=== PATIENT | female | born 1980 | race Caucasian/White ===

== ENCOUNTER 2017-08-03 06:50 | Day surgery (SDC) | payer BC, MEDICAID ==
[~2017-08-03 06:50] MED LIST: Bupivacaine 0.25% 10 ML SDV INJECT ONE; Lactated Ringers 1,000 ML IV SCH; ceFAZolin 2 GM in Premix Bag 1 BAG IV ONE
--- NOTE | 2017-08-03 07:17 | PCM.PREANE ---
Preanesthetic Assessment - Anesthesia/Transfusion/Family Hx Anesthesia History: Prior Anesthesia Without Reaction Family History of Anesthesia Reaction: No Transfusion History: No Prior Transfusion(s) Intubation History: Unknown - Review of Systems General: No Symptoms Pulmonary: No Symptoms Cardiovascular: No Symptoms Gastrointestinal: No Symptoms Neurological: No Symptoms Other: Reports: None - Physical Assessment O2 Sat by Pulse Oximetry: 98 Respiratory Rate: 16 Vital Signs: Last Vital Signs Temp 37.2 C 08/03/17 07:13 Pulse 74 08/03/17 07:13 Resp 16 08/03/17 07:13 BP 121/75 08/03/17 07:13 Pulse Ox 98 08/03/17 07:13 Height: 1.63 m Weight: 67.585 kg ASA Class: 1 Mental Status: Alert & Oriented x3 Airway Class: Mallampati = 2 Dentition: Reports: Normal Dentition Thyro-Mental Finger Breadths: 3 Mouth Opening Finger Breadths: 2 ROM/Head Extension: Full Lungs: Clear to Auscultation, Normal Respiratory Effort Cardiovascular: Regular Rate, Regular Rhythm - Allergies Allergies/Adverse Reactions: Allergies Allergy/AdvReac Type Severity Reaction Status Date / Time No Known Allergies Allergy Verified 05/28/14 10:40 - Blood Blood Available: No - Anesthesia Plan Pre-Op Medication Ordered: None - Acknowledgements Anesthesia Type Planned: General Anesthesia Pt an Appropriate Candidate for the Planned Anesthesia: Yes Alternatives and Risks of Anesthesia Discussed w Pt/Guardian: Yes Pt/Guardian Understands and Agrees with Anesthesia Plan: Yes PreAnesthesia Questionnaire HEENT History: Reports: Other (See Below) Other HEENT History: wears glasses Genitourinary History: Reports: None SHIRT CLEANER History: Reports: , Spontaneous - Past Surgical History Head Surgeries/Procedures: Reports: None HEENT Surgical History: Reports: Oral Surgery Other HEENT Surgeries/Procedures: wisdom teeth extraction Female Surgical History: Reports: D&C, Other (See Below) Other Female Surgeries/Procedures: exc of tissue from rt axilla - SUBSTANCE USE Smoking Status *Q: Former Smoker Tobacco Use Within Last Twelve Months: No Recreational Drug Use History: No - HOME MEDS Home Medications: Home Meds . [No Known Home Meds] 07/29/17 [History] - CURRENT (IN HOUSE) MEDS Current Meds: Current Medications Lactated Ringer's (Ringers, Lactated) 1,000 mls @ 125 mls/hr IV ASDIRECTED CARLOS Last Admin: 08/03/17 07:14 Dose: 125 mls/hr Discontinued Medications Bupivacaine HCl (Sensorcaine-Mpf 0.25%) 10 ml INJECT ONETIME ONE Stop: 08/02/17 16:50 Cefazolin Sodium/Dextrose 2 gm (/ Premix) 50 mls @ 100 mls/hr IV ONETIME ONE Stop: 08/02/17 17:18
[2017-08-03] MEDS ORDERED: Dexamethasone 4 MG/ML 5 ML MDV ONE (07:25)
[2017-08-03] MEDS ORDERED: Midazolam 1 MG/ML 2 ML SDV ONE (07:25)
[2017-08-03] MEDS ORDERED: fentaNYL 100 MCG/2 ML SDV ONE (07:25)
[2017-08-03] MEDS ORDERED: Propofol 200 MG/20 ML SDV ONE (07:25)
[2017-08-03] MEDS ORDERED: Ondansetron 4 MG/2 ML SDV ONE (07:25)
[2017-08-03] MEDS ORDERED: Lidocaine 2% 5 ML SDV ONE (07:25)
[2017-08-03] MEDS ORDERED: Bupivacaine 0.25% 10 ML SDV ONE (07:28)
[2017-08-03] MEDS ORDERED: Ketorolac 30 MG/ML SDV ONE (08:00)
[2017-08-03] MEDS ORDERED: fentaNYL 100 MCG/2 ML SDV IVPUSH PRN (08:34)
--- NOTE | 2017-08-03 09:05 | PCM.POSTAN ---
POST ANESTHESIA ASSESSMENT - MENTAL STATUS Mental Status: Alert, Oriented - RESPIRATORY Respiratory Status: Respiratory Rate WNL, Airway Patent, O2 Saturation Stable - CARDIOVASCULAR CV Status: Pulse Rate WNL, Blood Pressure Stable - GASTROINTESTINAL GI Status: No Symptoms - PAIN Pain Score: 0 - POST OP HYDRATION Hydration Status: Adequate & Stable
[2017-08-03 09:46] VITALS: BP 105/71
--- NOTE | 2017-08-03 17:42 | PCM.OPNOTE ---
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 Audit Clerk: Bekah Acevedo Condition: Good Free Text/Narrative:: Intake & Output 08/03/17 08/03/17 08/03/17 07:59 15:59 23:59 Intake Total 950 Balance 950
--- NOTE | 2017-08-04 13:12 | OR ---
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 PROCEDURE: Release of volar plate contracture and repair of extensor tendon dorsally at the PIP joint for boutonniere deformity of the right ring finger. TIRE BAGGER: NIEVES Hyde ANESTHESIA: Local MAC. INDICATIONS: Ms. Woodard is a 36-year-old female with a boutonniere deformity over the right ring finger. She has tried physical therapy and other conservative measures along with splinting and unfortunately continues to have progressive worsening. It is now static contracture of the volar plate wherein she is unable to extend the PIP joint. The dorsal extensor mechanism has stretched and the lateral bands migrating laterally. Risks and benefits of repair were discussed with her and she was in agreement to proceed. Risks were including, but not limited to, bleeding, infection, damage to underlying structures, possible need for future interventions and possible scarring. PROCEDURE IN DETAIL: After informed consent was obtained and placed on the chart, the patient was brought to the operating theater in supine position. After adequate local MAC anesthetic was obtained, the area was prepped and draped and a time-out was completed to confirm side and site. Once adequately prepped and draped, and the arm was exsanguinated and tourniquet was inflated to 200 mmHg, attention was then paid to dissection over the volar plate. A small Carley-type incision was made and dissection was carried down through the subcutaneous tissues taking care to protect the neurovascular bundles. The flexor tendon was reached and noted to be significantly scarred. This was freed and the volar plate was exposed. In a stepwise fashion, the checkrein ligament and then volar plate itself was released in order to allow full extension of the PIP joint. There was significant contracture of all involved structures that had to be released. Once adequately released, it was placed through range of motion and placed in a flat position. Once the volar plate released, attention was then paid to the extensor tendon through a small dorsal incision. Unfortunately, the extensor tendon had stretched and allowed lateral migration of the lateral bands. Once these were located and brought centrally, the central extensor mechanism was plicated and stitched together using a 4-0 FiberWire suture. Once this was adequately secured, attention was then paid to closure of the skin incisions after copious irrigation. The skin incisions were irrigated and closed using a 5-0 nylon stitch in a running horizontal mattress fashion. Once this was completed, the wound was dressed with Xeroform and placed in a short-arm splint in safe position. The patient tolerated this well. All counts and needles were correct at the end of the case. FOLLOWUP INSTRUCTIONS: The patient will see us in 1 week or sooner if any problems, questions, or concerns. PRIMARY SURGEON: SECONDARY SURGEON: REASON TIRE BAGGER WAS NECESSARY: ROLE OF TIRE BAGGER: ROSA BRICENO /[id number]
== END 2017-08-03 10:10 | disposition home or self-care (01) ==
LOC: MW.SDS 06:50
PROVIDERS: ATTEND Plastic Surgery
DX: M20.021 Boutonniere deformity of right finger(s) (principal); S69.92XA Unspecified injury of left wrist, hand and finger(s), initial encounter; Z87.891 Personal history of nicotine dependence; Z98.890 Other specified postprocedural states
CPT/HCPCS: 26426; 81025; J0690; J1100; J1885; J2250; J2405; J3010; J7120; 01810; J2704

== ENCOUNTER 2020-03-17 06:44 | Day surgery (SDC) | payer MEDICAID, OTHER ==
[~2020-03-17 06:44] MED LIST changes: +Azithromycin 250 MG Tab PO ONE; -Bupivacaine 0.25% 10 ML SDV INJECT ONE; -ceFAZolin 2 GM in Premix Bag 1 BAG IV ONE
[2020-03-17] MEDS ORDERED: Midazolam 1 MG/ML 2 ML SDV ONE (06:59)
[2020-03-17] MEDS ORDERED: Propofol 200 MG/20 ML SDV ONE (06:59)
[2020-03-17] MEDS ORDERED: fentaNYL 100 MCG/2 ML SDV ONE (06:59)
[2020-03-17] MEDS ORDERED: Dexamethasone 4 MG/ML 5 ML MDV ONE (07:01)
[2020-03-17] MEDS ORDERED: Lidocaine 2% 5 ML SDV ONE (07:01)
[2020-03-17] MEDS ORDERED: Rocuronium Bromide 50 MG/5 ML Syringe ONE (07:01)
[2020-03-17] MEDS ORDERED: Glycopyrrolate 0.2 MG/ML SDV ONE (07:01)
[2020-03-17] MEDS ORDERED: Ketorolac 30 MG/ML SDV ONE (07:01)
[2020-03-17] MEDS ORDERED: Ondansetron 4 MG/2 ML SDV ONE (07:01)
[2020-03-17] MEDS ORDERED: Sugammadex Sodium 200 MG/2 ML VIAL ONE (07:04)
--- NOTE | 2020-03-17 07:13 | PCM.PREANE ---
Preanesthetic Assessment - Anesthesia/Transfusion/Family Hx Anesthesia History: Prior Anesthesia Without Reaction Family History of Anesthesia Reaction: No Transfusion History: No Prior Transfusion(s) Intubation History: Unknown - Review of Systems General: No Symptoms Pulmonary: No Symptoms Cardiovascular: No Symptoms Gastrointestinal: No Symptoms Neurological: No Symptoms Other: Reports: None - Physical Assessment Height: 5 ft 3 in Weight: 68.039 kg ASA Class: 2 Mental Status: Alert & Oriented x3 Airway Class: Mallampati = 2 Dentition: Reports: Normal Dentition Thyro-Mental Finger Breadths: 3 Mouth Opening Finger Breadths: 3 ROM/Head Extension: Full Lungs: Clear to Auscultation, Normal Respiratory Effort Cardiovascular: Regular Rate, Regular Rhythm - Allergies Allergies/Adverse Reactions: Allergies Allergy/AdvReac Type Severity Reaction Status Date / Time No Known Allergies Allergy Verified 03/17/20 07:09 - Blood Blood Available: No - Anesthesia Plan Pre-Op Medication Ordered: None - Acknowledgements Anesthesia Type Planned: General Anesthesia Pt an Appropriate Candidate for the Planned Anesthesia: Yes Alternatives and Risks of Anesthesia Discussed w Pt/Guardian: Yes Pt/Guardian Understands and Agrees with Anesthesia Plan: Yes PreAnesthesia Questionnaire HEENT History: Reports: None Cardiovascular History: Reports: None Respiratory History: Reports: None Genitourinary History: Reports: None WATERSHED TENDER History: Reports: , Spontaneous , Other (See Below) (h/o preeclampsia) Musculoskeletal History: Reports: None Neurological History: Reports: None Psychiatric History: Reports: Anxiety, Depression Endocrine/Metabolic History: Reports: Other (See Below) (h/o gestational d iabetes, now OK) Hematologic History: Reports: None Immunologic History: Reports: None Oncologic (Cancer) History: Reports: None Dermatologic History: Reports: None - Past Surgical History Head Surgeries/Procedures: Reports: None HEENT Surgical History: Reports: Oral Surgery Other HEENT Surgeries/Procedures: wisdom teeth extraction Cardiovascular Surgical History: Reports: None Respiratory Surgical History: Reports: None GI Surgical History: Reports: None Female Surgical History: Reports: D&C ( and ), LEEP, Other (See Below) Endocrine Surgical History: Reports: None Neurological Surgical History: Reports: None Musculoskeletal Surgical History: Reports: None, Arthroscopic Procedure, Other (See Below) Other Musculoskeletal Surgeries/Procedures:: right 4th digit tendon release Oncologic Surgical History: Reports: None Dermatological Surgical History: Reports: Other (See Below) (birthmark remova) - SUBSTANCE USE Smoking Status *Q: Former Smoker (quit inb or ) Tobacco Use Within Last Twelve Months: No - HOME MEDS Home Medications: Home Meds Acetaminophen [Tylenol] 2 tab PO ASDIRECTED PRN 03/11/20 [History] - CURRENT (IN HOUSE) MEDS Current Meds: Current Medications Lactated Ringer's (Ringers, Lactated) 1,000 mls @ 125 mls/hr IV ASDIRECTED CARLOS Discontinued Medications Azithromycin (Zithromax) 1,000 mg PO Q24H ONE Stop: 03/17/20 06:26 Last Admin: 03/17/20 07:03 Dose: 1,000 mg Documented by: Dexamethasone (Dexamethasone) Confirm Administered Dose 20 mg .ROUTE .STK-MED ONE Stop: 03/17/20 07:02 Fentanyl (Sublimaze) Confirm Administered Dose 100 mcg .ROUTE .STK-MED ONE Stop: 03/17/20 07:00 Glycopyrrolate (Robinul) Confirm Administered Dose 0.2 mg .ROUTE .STK-MED ONE Stop: 03/17/20 07:02 Ketorolac Tromethamine (Toradol) Confirm Administered Dose 30 mg .ROUTE .STK-MED ONE Stop: 03/17/20 07:02 Lidocaine (Xylocaine-Mpf 2%) Confirm Administered Dose 5 ml .ROUTE .STK-MED ONE Stop: 03/17/20 07:02 Midazolam HCl (Versed 1 Mg/Ml) Confirm Administered Dose 2 mg .ROUTE .STK-MED ONE Stop: 03/17/20 07:00 Ondansetron HCl (Zofran) Confirm Administered Dose 4 mg .ROUTE .STK-MED ONE Stop: 03/17/20 07:02 Propofol (Diprivan 20 Ml) Confirm Administered Dose 200 mg .ROUTE .STK-MED ONE Stop: 03/17/20 07:00 Rocuronium [place] (Rocuronium [place]) Confirm Administered Dose 50 mg .ROUTE .STK-MED ONE Stop: 03/17/20 07:02 Sugammadex Sodium (Bridion) Confirm Administered Dose 200 mg .ROUTE .STK-MED ONE Stop: 03/17/20 07:05
[2020-03-17] MEDS ORDERED: Bupivacaine 0.25%/EPINEPHrine 1:200,000 10 ML SDV ONE (07:27)
[2020-03-17] MEDS ORDERED: Lidocaine 1% with EPINEPHrine 1:100,000 10 ML MDV ONE (07:27)
[2020-03-17] MEDS ORDERED: Neomycin/Polymyxin B Bladder Irrigation 1 ML Amp ONE (07:28)
[2020-03-17] MEDS ORDERED: Bupivacaine 0.25% 10 ML SDV ONE (07:37)
[2020-03-17] MEDS ORDERED: Fluorescein 5 ML Vial ONE (08:32)
[2020-03-17] MEDS ORDERED: fentaNYL 100 MCG/2 ML SDV IVPUSH PRN (08:34)
[2020-03-17] MEDS ORDERED: Acetaminophen 1,000 MG in Premix Bag 1 BAG IV PRN (08:34)
[2020-03-17] MEDS ORDERED: Promethazine 25 MG/ML SDV IM PRN (09:08)
[2020-03-17] MEDS ORDERED: Ketorolac 30 MG/ML SDV IVPUSH PRN (09:08)
[2020-03-17] MEDS ORDERED: Morphine 4 MG/ML Syringe IVPUSH PRN (09:08)
[2020-03-17] MEDS ORDERED: Ondansetron 4 MG/2 ML SDV IVPUSH PRN (09:08)
[2020-03-17] MEDS ORDERED: Ketorolac 30 MG/ML SDV IVPUSH ONE (09:08)
[2020-03-17] MEDS ORDERED: Acetaminophen/oxyCODONE 325-5 MG Tab PO PRN ×2 (09:08)
--- NOTE | 2020-03-17 09:12 | PCM.OPNOTE ---
- General Post-Op/Procedure Note Date of Surgery/Procedure: 03/17/20 Operative Procedure(s): Single incision midurethral sling. Cystoscopy Findings: Normal anteverted Uterus Normal bladder and urethra - cytoscopy Negative voiding with crede and valsalva maneuver Pre Op Diagnosis: Stress Urinary incontinence Post-Op Diagnosis: same Anesthesia Technique: General Mask Primary Surgeon: Ward Petty Anesthesia Provider: Stephen Laws Fluid Replacement, Intraop: 800 EBL in mLs: 60 Complications: None Condition: Good Free Text/Narrative:: Intake & Output 03/16/20 03/17/20 03/17/20 22:59 06:59 14:59 Intake Total 900 Balance 900
--- NOTE | 2020-03-17 09:34 | PCM.POSTAN ---
POST ANESTHESIA ASSESSMENT - MENTAL STATUS Mental Status: Alert, Oriented - VITAL SIGNS Vital Signs: Last Vital Signs Temp 36.3 C 03/17/20 08:55 Pulse 90 03/17/20 09:05 Resp 12 03/17/20 09:05 BP 115/74 03/17/20 09:05 Pulse Ox 99 03/17/20 09:05 - RESPIRATORY Respiratory Status: Respiratory Rate WNL, Airway Patent, O2 Saturation Stable - CARDIOVASCULAR CV Status: Pulse Rate WNL, Blood Pressure Stable - GASTROINTESTINAL GI Status: No Symptoms - PAIN Pain Score: 0 - POST OP HYDRATION Hydration Status: Adequate & Stable - OBSERVATIONS Free Text/Narrative:: No anesthesia problems
--- NOTE | 2020-03-17 10:49 | PCM48HPAN ---
Post Anesthesia Note - EVALUATION WITHIN 48HRS OF ANESTHETIC Vital Signs in Normal Range: Yes Patient Participated in Evaluation: Yes Respiratory Function Stable: Yes Airway Patent: Yes Cardiovascular Function Stable: Yes Hydration Status Stable: Yes Pain Control Satisfactory: Yes Nausea and Vomiting Control Satisfactory: Yes Mental Status Recovered: Yes Vital Signs: Last Vital Signs Temp 36.3 C 03/17/20 08:55 Pulse 90 03/17/20 09:05 Resp 12 03/17/20 09:05 BP 115/74 03/17/20 09:05 Pulse Ox 99 03/17/20 09:05 - COMMENTS/OBSERVATIONS Free Text/Narrative:: No anesthesia problems
[2020-03-17 13:11] VITALS: BP 111/65; PULSE 76
--- NOTE | 2020-03-18 11:12 | OR ---
SURGEON: ROSELINE VALENZUELA DATE OF PROCEDURE: 03/17/2020 PREOPERATIVE DIAGNOSIS: A 39-year-old, para 2-0-2-2, with stress urinary incontinence. POSTOPERATIVE DIAGNOSIS: A 39-year-old, para 2-0-2-2, with stress urinary incontinence. PROCEDURE: Single-incision midurethral sling ( Solyx) ANESTHESIA: General. ESTIMATED BLOOD LOSS: 60 mL. IV FLUID: 900 mL. NOTES AND FINDINGS: Normal-sized anteverted uterus. Mild cystocele observed. BRIEF HISTORY ABOUT THE PATIENT: A 39-year-old, para 2, who was complaining of leakage of fluid with coughing and sneezing, and she had to wear pads for doing activities. She had no urge incontinence. The patient had a cystometry done, which confirmed the stress urinary incontinence. She was given the option to continue conservative management versus midurethral sling, and she decided to have a midurethral sling. She was explained the risks, benefits, and alternatives. The risks of the midurethral sling include increased urgency, damage to the bladder and the bowel, mesh erosion, need of reoperation, continued stress incontinence , frequent UTI. The patient was explained the risks, benefits, and alternatives, and she decided to proceed. DESCRIPTION OF PROCEDURE: The patient was taken to the operating room where general anesthesia was performed without difficulty. She was prepared and draped in the dorsal lithotomy position with Santhosh stirrups. The bladder was then drained and the Barney was left in place. Then, a 1 to 2 cm incision was made in the anterior vaginal wall at the level of the midurethra. The vaginal epithelium was then bilaterally undermined and from the endopelvic fascia using sharp dissection to the level of the inferior pubic rami. This created the pathway for delivery of the sling device. The tip of the device was then placed into the mesh tip carrier. The deployment mechanism was inserted into the dissected pathway at the 45-degree angle and used to pass the distal anchors to the obturator internus muscle behind the pubic rami. The anchors were advanced till the the midline marking on the mesh was reached. Once the position was optimized, the anchoring carrier was deployed from the trocar by stabilizing the delivery trocar with one hand and pulling the device with the opposite hand. This was repeated in a similar fashion on the opposite side and the mesh carrier was deposited into the obturator muscle and the sling was brought to rest at the level of the midurethra without tension. The surgeon verified that the mesh was not twisted prior to deployment of the second mesh and there was a small instrument that could easily be passed between the urethra and the sling. Before the procedure, the point was injected with 0.25% Marcaine and lidocaine and epi. After the sling was deployed, then antibiotic was used to irrigate the tunnel and vaginal mucosa was closed with 0 Vicryl in continuous locking. The patient will go home after she voids. The patient tolerated the procedure well and was taken to the recovery room in stable condition. RIVKA BRICENO /[id number] MTDD
== END 2020-03-17 11:00 | disposition home or self-care (01) ==
LOC: MW.SDS 06:44
PROVIDERS: ATTEND Obstetrics & Gynecology
DX: N39.3 Stress incontinence (female) (male) (principal); N81.10 Cystocele, unspecified; F41.9 Anxiety disorder, unspecified; F32.9 Major depressive disorder, single episode, unspecified; Z79.899 Other long term (current) drug therapy; Z87.891 Personal history of nicotine dependence
CPT/HCPCS: 36415; 57288; 84703; 85025; A9270; C1771; J0131; J1100; J2001; J2250; J2704; J3490; J7120; 00860; J1885; J2405; J3010